=== PATIENT | male | born 2000 | race Caucasian/White ===

== ENCOUNTER 2021-09-29 09:37 | Emergency (ER) | payer MEDICAID, SELFPAY ==
[2021-09-29 09:38] VITALS: BP 158/111; PULSE 86; RESP 18; TEMP 36.6; O2SAT 100; BMI 57.9
--- NOTE | 2021-09-29 10:21 | CT_ITS ---
STUDY: CT ABDOMEN AND PELVIS WITHOUT CONTRAST REASON FOR EXAM: Male, 20 years old. Kidney Stone. Right-sided abdominal pain. RADIATION DOSAGE (If Supplied By Facility): CTDIvol = ( 19.61 ) mGy, DLP = ( 1130.46 ) mGycm TECHNIQUE: Transaxial images were obtained from the dome of the diaphragm to the symphysis pubis without oral contrast, and without intravenous contrast. Sagittal and coronal images were reconstructed. Individualized dose optimization techniques were used for this CT. COMPARISON: None. FINDINGS: The visualized lung bases are unremarkable. The visualized portions of the heart are within normal limits. There is decreased attenuation of the liver consistent with steatosis. Normal gallbladder and extrahepatic biliary system. Normal spleen. Normal pancreas. Normal bilateral adrenal glands. Normal right kidney. Normal left kidney. Normal visualized stomach. Normal small intestine. Normal colon. The appendix is visualized and appears normal. Normal abdominal aorta. Normal inferior vena cava. There is borderline retroperitoneal lymphadenopathy with enlarged nodes no greater than 10mm in the short axis diameter. Normal urinary bladder. Normal abdominal wall. Normal osseous structures. CT/Abdomen/Pelvis without Cont IMPRESSION: Diffuse fatty infiltration of the liver. No obstructive uropathy is seen. Electronically Signed: Mathew Turner MD at 11:12 EST , Service support ,
--- NOTE | 2021-09-29 10:21 | EX.ED.DYSGE1 ---
HPI History of Present Illness Chief Complaint: Abd Pain Informant: patient and parent Narrative Narrative: 20-year-old male presents with his mother for the evaluation of abdominal pain. Mom states that for weeks he has had pain in the right side of his abdomen which she initially thought was from sleeping on a futon. She notes that last night he noted some blood in his urine. He states that when he urinates the pain increases significantly. No reported fevers or vomiting. He has moved his bowels regularly PFSH PFS Medical History (Updated 09/29/21 @ 11:[address] Jose Roberto Jacobs DO) Autistic disorder Allergy/AdvReac Type Severity Reaction Status Date / Time latex Allergy Rash Verified 09/29/21 11:16 ibuprofen AdvReac Upset Verified 09/29/21 11:16 Stomach Surgical History (Updated 09/29/21 @ 10:[address] Jose Roberto Jacobs DO) History of adenoidectomy History of hernia repair Hx of tympanostomy tubes Social History (Updated 09/29/21 @ 10:[address] Jose Roberto Jacobs DO) Smoking Status: Never smoker substance use type: does not use ROS ROS ED Constitutional Constitutional ED: Denies chills, fever(s) or weight loss Eyes Eyes: Denies change in vision or diplopia ENT ENT ED: Denies ear pain, rhinorrhea or sore throat Cardiovascular Cardiovascular: Denies chest pain, orthopnea, palpitations or racing heartbeat Respiratory/Chest Respiratory/Chest: Denies cough, dyspnea or orthopnea Gastrointestinal Gastrointestinal: Reports abdominal pain and nausea; Denies diarrhea or vomiting Genitourinary Genitourinary ED: Reports dysuria and hematuria; Denies urinary frequency Musculoskeletal Musculoskeletal: Denies arthralgias or myalgias Integumentary Denies abscess or rash Neurologic Neurologic: Denies headache(s) or weakness Psychiatric Psychiatric: Denies anxiety, depression, suicidal ideation or suicidal thoughts Endocrine Endocrinology: Denies polydipsia, polyphagia or polyuria Allergic/Immunologic Allergic/Immunologic ED: Denies mouth swelling, tongue swelling or urticaria EXAM Physical Exam Const Vital Signs: 09/29/21 09:38 Temperature 98 F Temperature Source Temporal Pulse Rate 86 Respiratory Rate 18 Blood Pressure 158/111 H Blood Pressure Mean 126 Pulse Ox 100 Oxygen Delivery Method Room Air Positive well nourished, well developed and obese General Appearance ED: well developed Nutritional Appearance: obese HEENT Reports normocephalic, head/scalp atraumatic, TM's clear and moist mucous membranes Negative for trauma Tympanic Membrane ED: Yes TM's clear Eyes PERRL and EOMs intact bilaterally Neck no lymphadenopathy, supple and no JVD Resp normal respiratory effort and clear to auscultation bilaterally Cardio regular rate, regular rhythm and no murmurs GI normal to inspection, nondistended, normoactive bowel sounds and non-tender Palpation: soft Back/Spine no CVA tenderness and normal ROM Extremity normal to inspection General Extremety ED: Negative for edema General Extremity: Negative for edema Neuro oriented x3 and CN's II-XII intact bilaterally Sensorium / Orientation: alert Motor Exam: strength 5/5 throughout Psych mental status grossly normal Mood & Affect: Negative for depressed or tearful Skin no rashes or lesions noted and no wounds MDM MDM MDM Narrative Medical decision making narrative: White count 9.1 hemoglobin 17.2. Creatinine 0.74 glucose [address] then pelvis does not demonstrate any acute findings. Patient received a dose of Toradol. Cannot definitively say the patient did not pass a kidney stone last night but that would not explain why he is having pain today. Lab Data Attestation: I reviewed the patient's lab results. Labs: Laboratory Results - last 24 hr 09/29/21 09/29/21 09/29/21 09:57 09:57 10:59 WBC 9.1 RBC 6.36 H Hgb 17.2 H Hct 51.7 MCV 81.3 MCH 27.0 MCHC 33.3 RDW Std Deviation 38.2 RDW Coeff of Terrance 13.0 Plt Count 269 MPV 10.6 Immature Gran % (Auto) 0.900 Neut % (Auto) 56.5 Lymph % (Auto) 30.3 Yancey % (Auto) 9.0 Eos % (Auto) 2.4 Baso % (Auto) 0.9 Absolute Neuts (auto) 5.1 Absolute Lymphs (auto) 2.75 Nucleated RBC % 0 Sodium 137 Potassium 4.1 Chloride 103 Carbon Dioxide 28.0 Anion Gap 6 BUN 11 Creatinine 0.74 Estim Creat Clear Calc 150.11 Est GFR (MDRD) Af Amer 173 Est GFR (MDRD) Non-Af 143 BUN/Creatinine Ratio 14.8 Glucose 224 H Calcium 9.7 Total Bilirubin 0.60 AST 35 ALT 78 H Alkaline Phosphatase 75 Total Protein 8.0 Albumin 3.6 Globulin 4.4 H Albumin/Globulin Ratio 0.8 L Urine Color Yellow Urine Clarity Clear Urine pH 5.0 Ur Specific [place] 1.025 Urine Protein 100 H Urine Glucose (UA) 250 H Urine Ketones 5 H Urine Occult Blood 10 H Urine Nitrite Negative Urine Bilirubin Negative Urine Urobilinogen Normal Ur Leukocyte Esterase Negative Urine RBC 0 SEEN Urine WBC 0 SEEN Ur Squamous Epith Cells 0 SEEN Urine Bacteria 0 SEEN Urine Mucus 0 SEEN Radiography Diagnostic Testing: Clinical Impression(s) from Imaging Studies Abdomen/Pelvis CT 09/29/21 10:21 IMPRESSION: Diffuse fatty infiltration of the liver. No obstructive uropathy is seen. Electronically Signed: Mathew Turner MD at 11:12 EST , Service support , Discharge Plan Triage Chief Complaint: Abd Pain ED Provider: Jose Roberto Jacobs Dx/Rx/DC Orders Clinical Impression: Acute right flank pain Instructions: ED Flank Pain, Uncertain Cause Primary Care Provider: Remy Kline Referrals: Remy Kline MD [Primary Care Provider] - As Needed Disposition Disposition: Home, Self Care
[2021-09-29 10:33] LABS: Absolute Lymphocyte Count 2.75 X10^3/uL (0.83-4.51); Absolute Neutrophil Count 5.1 X10^3/uL (2.0-7.7); Basophil# 0.08 X10^3/uL; Basophil% 0.9 % (0-1); Eosinophil# 0.22 X10^3/uL; Eosinophils% 2.4 % (0-5); Hematocrit 51.7 % (40-54); Hemoglobin 17.2 g/dL (13.0-16.5); Lymphocyte # 2.75 X10^3/ul (0.83-4.51); Lymphocyte % 30.3 % (19-41); Mean Corp Hgb Conc 33.3 g/dL (32-36); Mean Corpuscular Volume 81.3 fL (80-94); Mean Platelet Vol. 10.6 fl (6.2-12.0); Monocyte# 0.82 X10^3/uL; NRBC Flagged by Analyzer 0 % (0-5); Neutrophil # 5.12 X10^3/uL (2.7-7.7); Neutrophil % 56.5 % (47-70); Platelet Count 269 K/mm3 (150-450); RBC Distribution Width SD 38.2 fl (35.1-43.9); Red Blood Count 6.36 M/mm3 (4.6-6.2); White Blood Count 9.1 K/mm3 (4.4-11.0)
[2021-09-29 10:48] LABS: ALB/GLOB Ratio 0.8 RATIO (0.9-2.4); AST(SGOT) 35 U/L (15-37); Alanine Aminotransfer ALT/SGPT 78 U/L (16-61); Albumin, Serum 3.6 g/dL (3.2-5.0); Alkaline Phosphatase 75 U/L (45-117); Anion Gap 6 (5-15); BUN 11 mg/dL (7-18); BUN/Creat Ratio 14.8 RATIO (10-20); Calcium,Total 9.7 mg/dL (8.5-10.1); Chloride 103 mmol/L (98-107); Creatinine, Serum 0.74 mg/dL (0.70-1.30); EST Glomerular Filtration Rate 143 mL/min (>60); Est Glom Filt Rate - Afr Amer 173 mL/min (>60); Estimated Creatinine Clearance 150.11 ml/min; Globulin 4.4 g/dL (2.2-4.2); Glucose 224 mg/dL (74-106); Potassium 4.1 mmol/L (3.5-5.1); Sodium Level 137 mmol/L (136-145)
[2021-09-29 11:06] LABS: Bacteria 0 SEEN /hpf (None Seen); Mucous, Urine 0 SEEN /hpf (<or=2+); Red Blood Cells-Urine 0 SEEN /hpf (0-5); Squamous Epithelial Cells - UA 0 SEEN /hpf (0-5); White Blood Cells 0 SEEN /hpf (0-5)
[2021-09-29 11:19] LABS: Color, Urine Yellow (Yellow); Glucose, Dipstick 250 mg/dl (Normal); Ketone-Dipstick 5 mg/dl (Negative); Leukocyte Esterase-Dipstick Negative /ul (Negative); Nitrite-Dipstick Negative (Negative); Occult Blood-Urine 10 /ul (Negative); Protein-Dipstick 100 mg/dl (Negative); Specific Gravity, Urine 1.025 (1.002-1.030); Urine Bilirubin Dipstick Negative (Negative); Urine Clarity Clear (Clear); Urine Urobilinogen Normal (Normal)
[2021-09-29] MEDS: Ketorolac 30 MG/ML Syringe IV (11:25)
--- NOTE | 2021-09-29 16:20 | CM.ED ---
SW Note Referral Source: MD Referral Reason: Homeless at the [facility] SW was advised that patient and her son are living [facility]. Patient attempted to provide patient with resource list but she said I already have it. Patient said that she is working on completing her paperwork for [facility] and has been in touch with them. Patient said that she is doing fine and has no SW needs. Plan: Patient reports linkage with [facility] resources Carine LE
== END 2021-09-29 12:02 | disposition home or self-care (01) ==
PROVIDERS: Emergency Provider Emergency Medicine; PCP Internal Medicine
DX: R10.9 Unspecified abdominal pain (principal); E66.9 Obesity, unspecified
CPT/HCPCS: 74176; 80053; 81001; 85025; 96374; 99283; A4216

== ENCOUNTER 2021-10-23 09:03 | Emergency (ER) | payer MEDICAID, SELFPAY ==
[2021-10-23 09:05] VITALS: BP 135/110; PULSE 112; RESP 18; TEMP 36.2; O2SAT 97; BMI 46.5
--- NOTE | 2021-10-23 09:15 | ED.RN ---
pt to room in ed. button machine operator assiting pt into gown and gathering belongings. button machine operator to sit with pt until social work can evaluate safety.
[2021-10-23 10:19] LABS: Amphetamine Urine VISTA NEGATIVE (<1000 ng/mL); Barbiturate Urine VISTA NEGATIVE (< 200 ng/mL); Benzodiazepine Urine VISTA NEGATIVE (< 200 ng/mL); Cocaine Urine VISTA NEGATIVE (< 300 ng/mL); Ecstacy Urine VISTA NEGATIVE (< 500 ng/mL); Methadone Urine VISTA NEGATIVE (< 300 ng/mL); PCP Urine VISTA NEGATIVE (< 25 ng/mL); THC Urine VISTA NEGATIVE (< 50 ng/mL); Vista UDS pH Range 5
[2021-10-23 10:45] LABS: Absolute Lymphocyte Count 2.02 X10^3/uL (0.83-4.51); Absolute Neutrophil Count 6.4 X10^3/uL (2.0-7.7); Basophil# 0.07 X10^3/uL; Basophil% 0.7 % (0-1); Eosinophil# 0.18 X10^3/uL; Eosinophils% 1.9 % (0-5); Hematocrit 48.7 % (40-54); Hemoglobin 16.5 g/dL (13.0-16.5); Lymphocyte # 2.02 X10^3/ul (0.83-4.51); Lymphocyte % 21.3 % (19-41); Mean Corp Hgb Conc 33.9 g/dL (32-36); Mean Corpuscular Hgb 27.2 pg (27.0-32.0); Mean Corpuscular Volume 80.4 fL (80-94); Mean Platelet Vol. 10.4 fl (6.2-12.0); Monocyte# 0.76 X10^3/uL; NRBC Flagged by Analyzer 0 % (0-5); Neutrophil # 6.42 X10^3/uL (2.7-7.7); Neutrophil % 67.7 % (47-70); Platelet Count 241 K/mm3 (150-450); RBC Distribution Width CV 13.2 % (11.6-14.6); Red Blood Count 6.06 M/mm3 (4.6-6.2); White Blood Count 9.5 K/mm3 (4.4-11.0)
[2021-10-23 10:57] LABS: Anion Gap 6 (5-15); BUN 12 mg/dL (7-18); BUN/Creat Ratio 15.1 RATIO (10-20); Calcium,Total 9.5 mg/dL (8.5-10.1); Chloride 105 mmol/L (98-107); Creatinine, Serum 0.79 mg/dL (0.70-1.30); EST Glomerular Filtration Rate 132 mL/min (>60); Est Glom Filt Rate - Afr Amer 160 mL/min (>60); Estimated Creatinine Clearance 174.86 ml/min; Glucose 202 mg/dL (74-106); Potassium 3.9 mmol/L (3.5-5.1); Sodium Level 138 mmol/L (136-145)
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
--- NOTE | 2021-10-23 11:40 | EX.ED.VIS.PS ---
HPI HPI - Psych History of Present Illness Chief Complaint: Suicidal Informant: patient Onset/Context/Timing Onset: Today Context: Gradual Onset Conflict: Family and Financial Timing: Continuous Worsened by: Situational factors Associated Symptoms Associated Symptoms - Psych: Positive for Depressed, Suicidal Thoughts, Pressured Speech and Agitated Specific plan (suicidal thought): Patient denies any specific suicidal plan. Narrative Narrative: Patient presents with suicidal ideations that are worse today. Patient states he has been having thoughts of suicide but denies any specific plan for suicide. Patient states he got into an argument with his mother. Patient states he has stressors over his family situation as well as financial situation. Patient states these are what is causing his suicidal ideations. With the social service agency director that he is having some auditory hallucinations. PFSH PFS Medical History Autistic disorder Allergy/AdvReac Type Severity Reaction Status Date / Time latex Allergy Rash Verified 10/23/21 09:05 ibuprofen AdvReac Upset Verified 10/23/21 09:05 Stomach Surgical History History of adenoidectomy History of hernia repair Hx of tympanostomy tubes Social History Smoking Status: Never smoker substance use type: does not use ROS ROS ED Review of Systems ROS Unobtainable: due to mental condition and other Details: Patient refused to answer review of systems questions EXAM Physical Exam Const Vital Signs: 10/23/21 09:05 10/23/21 12:21 10/23/21 13:03 Temperature 97.2 F L Temperature Source Temporal Pulse Rate 112 H 90 67 Respiratory Rate 18 18 14 Blood Pressure 135/110 H 145/82 H 137/81 H Blood Pressure Mean 118 103 99 Pulse Ox 97 98 98 Oxygen Delivery Method Room Air Room Air Room Air 10/23/21 13:05 Temperature Temperature Source Pulse Rate 67 Respiratory Rate 14 Blood Pressure 137/81 H Blood Pressure Mean 99 Pulse Ox 98 Oxygen Delivery Method Positive well nourished, well developed and obese General Appearance ED: well developed and irritable Nutritional Appearance: obese HEENT normocephalic and atraumatic Neck supple and no JVD Resp normal respiratory effort and clear to auscultation bilaterally Cardio no murmurs Rate: regular rate Rhythm: regular rhythm GI non-tender and non-distended Auscultation: normoactive bowel sounds Palpation: soft Extremity normal to inspection General Extremety ED: Negative for edema or tenderness General Extremity: Negative for edema Neuro oriented x3, CN's II-XII intact bilaterally and no sensory deficits noted Sensorium / Orientation: alert Motor Exam: strength 5/5 throughout Psych mental status grossly normal Activity / Motor Behavior: avoids eye contact Speech: minimal, loud and pressured Mood & Affect: depressed, irritable and labile affect Thought Content: suicidality Skin Rashes: no rashes MDM MDM MDM Narrative Medical decision making narrative: Suicide precautions were maintained. CBC was within normal limits. Basic metabolic profile was normal. Urine tox screen was negative. Serum alcohol level was negative. Patient is medically cleared for psychiatric evaluation. tea plantation worker was in to evaluate the patient. She felt that the patient would benefit from inpatient treatment. She will attempt to get the patient placed. Patient understands and is agreeable with the plan. All questions were answered. Lab Data Attestation: I reviewed the patient's lab results. Labs: Laboratory Results - last 24 hr 10/23/21 10/23/21 10/23/21 09:30 10:35 10:35 WBC 9.5 RBC 6.06 Hgb 16.5 Hct 48.7 MCV 80.4 MCH 27.2 MCHC 33.9 RDW Std Deviation 38.0 RDW Coeff of Terrance 13.2 Plt Count 241 MPV 10.4 Immature Gran % (Auto) 0.400 Neut % (Auto) 67.7 Lymph % (Auto) 21.3 Gregory % (Auto) 8.0 Eos % (Auto) 1.9 Baso % (Auto) 0.7 Absolute Neuts (auto) 6.4 Absolute Lymphs (auto) 2.02 Nucleated RBC % 0 Sodium 138 Potassium 3.9 Chloride 105 Carbon Dioxide 27.0 Anion Gap 6 BUN 12 Creatinine 0.79 Estim Creat Clear Calc 174.86 Est GFR (MDRD) Af Amer 160 Est GFR (MDRD) Non-Af 132 BUN/Creatinine Ratio 15.1 Glucose 202 H Calcium 9.5 Urine Opiates Screen NEGATIVE Urine Methadone Screen NEGATIVE Ur Barbiturates Screen NEGATIVE Ur Phencyclidine Scrn NEGATIVE Ur Amphetamines Screen NEGATIVE U Methamphetamin-MDMA NEGATIVE U Benzodiazepines Scrn NEGATIVE Urine Cocaine Screen NEGATIVE U Cannabinoids Screen NEGATIVE Ur Drug Screen Comment Ethyl Alcohol 10/23/21 10:35 WBC RBC Hgb Hct MCV MCH MCHC RDW Std Deviation RDW Coeff of Terrance Plt Count MPV Immature Gran % (Auto) Neut % (Auto) Lymph % (Auto) Gregory % (Auto) Eos % (Auto) Baso % (Auto) Absolute Neuts (auto) Absolute Lymphs (auto) Nucleated RBC % Sodium Potassium Chloride Carbon Dioxide Anion Gap BUN Creatinine Estim Creat Clear Calc Est GFR (MDRD) Af Amer Est GFR (MDRD) Non-Af BUN/Creatinine Ratio Glucose Calcium Urine Opiates Screen Urine Methadone Screen Ur Barbiturates Screen Ur Phencyclidine Scrn Ur Amphetamines Screen U Methamphetamin-MDMA U Benzodiazepines Scrn Urine Cocaine Screen U Cannabinoids Screen Ur Drug Screen Comment Ethyl Alcohol 9.0 Discharge Plan Triage Chief Complaint: Suicidal ED Provider: Adalid Hoffman Dx/Rx/DC Orders Clinical Impression: Depression with suicidal ideation Primary Care Provider: Remy Kline Referrals: Remy Kline MD [Primary Care Provider] - Disposition Disposition: Psychiatric Hospital or Unit Discharge Location: [facility]
--- NOTE | 2021-10-23 12:04 | CM.ED ---
BETH spoke to MD Rodriguez who is in agreement with placement. BETH faxed referrals to [facility]), [facility], and [facility]. Carine LE
[2021-10-23 12:21] VITALS: BP 145/82; PULSE 90; RESP 18; O2SAT 98
[2021-10-23 13:03] VITALS: BP 137/81; PULSE 67; RESP 14; O2SAT 98
[2021-10-23 13:05] VITALS: BP 137/81; PULSE 67; RESP 14; O2SAT 98
--- NOTE | 2021-10-23 13:13 | CM.ED ---
Addendum entered by Carine Alvarado 10/23/21 13:22: Sari CHAUHAN called report. Original Note: BETH Note BETH received phone call from Addis at [facility]. She requested call back. BETH updated her regarding patient's presentation and reports of SI. She said that [facility] could accept patient. BETH clarified with MD that patient did not tell him or this publications writer he was autistic but stated he had IEP related to math and reading. BETH called Addis in intake and updated her about this worker and MD have no information about the autism diagnosis. Addis said that they can accept patient with accepting MD being ANGELINA Garcia and going to the [address] [place] [id number] unit. BETH updated patient. Brit, PROFESSIONAL NURSE scheduled transport. BETH called [facility] again and advised of transport leaving in 20 minutes. BETH gave patient a handout on Sun and advised that he would be leaving in 20 minutes. Patient verbalized understanding. No further SW needs. Plan: [facility] [address] [place] [address] ANGELINA Garcia. Carine LE
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
--- NOTE | 2021-10-23 13:49 | ED.RN ---
[facility] NEW ETA 90-2 HRS
--- NOTE | 2021-10-23 15:32 | ED.RN ---
PER [facility] ADD ANOTHER 60- 90 MINUTE ETA
[2021-10-23 16:54] VITALS: BP 134/98; PULSE 101; RESP 16; O2SAT 95
--- NOTE | 2021-10-23 16:59 | NURSING ---
PER [facility] ETA IS 73 MINUTES AWAY
== END 2021-10-23 18:31 ==
PROVIDERS: Emergency Provider Emergency Medicine; PCP Internal Medicine
DX: F32.A Depression, unspecified (principal); R45.851 Suicidal ideations; E66.9 Obesity, unspecified
CPT/HCPCS: 80048; 80307; 82077; 85025; 87426; 99285